=== PATIENT | female | born 2000 | race Hispanic/Latino ===

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

== ENCOUNTER 2022-10-23 02:13 | Emergency (ER) | payer OTHER, SELFPAY ==
[2022-10-23 02:18] VITALS: BP 100/66; PULSE 72; RESP 16; TEMP 36.8; O2SAT 98; BMI 19.2
--- NOTE | 2022-10-23 02:40 | ED_ITS ---
HPI - Abdominal Pain General Chief Complaint: Abdominal Pain Stated Complaint: abd pain right side Time Seen by Provider: 10/23/22 02:34 Source: patient Mode of arrival: Ambulatory Limitations: no limitations History of Present Illness HPI narrative: This is a 22-year-old female with history of appendicitis treated with antibiotics and prior ovarian cysts as well as anxiety with complaint of right lower quadrant pain that started about 8pm on 10/22/2022. Patient states no fevers or chills. She is had nausea this evening and vomited once. She denies diarrhea or constipation, no black or bloody stools. She denies dysuria, urgency or frequency. She states she is currently on her menses. She denies any new vaginal discharge. Patient states pain is in the right lower abdomen, she states it feels similar when she had her appendicitis actually a little bit better than it was earlier this evening. Patient also notes she is had an ovarian cyst in the past on the left. Patient states she was treated with antibiotics for her appendicitis she states she was hospitalized twice for this. She never had an appendectomy. She denies any prior surgeries. She is on Lexapro as her only daily medication. No known drug allergies. She denies tobacco, rare alcohol, no illicit. Primary care is through the [facility]. Related Data Previous Rx's Medication Instructions Recorded cephalexin 500 mg capsule 500 mg PO BID #10 caps 12/29/21 ondansetron 4 mg disintegrating 4 mg PO Q6H PRN nausea and 12/29/21 tablet vomiting #10 tabs sulfamethoxazole 800 1 tab PO Q12H #20 tabs 10/23/22 mg-trimethoprim 160 mg tablet (Bactrim DS) Allergies Allergy/AdvReac Type Severity Reaction Status Date / Time No Known Drug Allergies Allergy Verified 12/29/21 12:39 Review of Systems Review of Systems ROS Unobtainable: All systems reviewed & are unremarkable except as noted in HPI and below Patient History Social History Smoking Status: Never smoker Smoking Status: Never smoker alcohol intake frequency: holidays/special occasions only Substance Use Type: does not use Exam Narrative Exam Narrative: GENERAL: Alert and oriented x three, female in luki-ix-kijafmul distress. HEENT: Head normocephalic, atraumatic, EOMI, pupils reactive, face symmetric, moist mucous membranes NECK: Supple, full range of motion CARDIOVASCULAR: Regular rate and rhythm without murmurs, rubs or gallops. RESPIRATORY: Breath sounds equal bilaterally, no wheezes rales or rhonchi. ABDOMEN: Soft, positive for right lower quadrant tenderness. Normoactive bowel sounds all 4 quadrants. No guarding or rebound, rigidity, no mass, nondisten ded. : Positive for right CVA tenderness, no left CVA EXTREMITIES: Normal range of motion, no clubbing or edema. Neurovascularly intact NEUROLOGICAL: Cranial nerves II through XII grossly intact. Moving all extremities SKIN: Warm, dry, no petechiae, no rashes or lesions. Initial Vital Signs Initial Vital Signs: Vital Signs Temperature 98.3 F 10/23/22 02:18 Pulse Rate 72 10/23/22 02:18 Respiratory Rate 16 10/23/22 02:18 Blood Pressure 100/66 10/23/22 02:18 Pulse Oximetry 98 10/23/22 02:18 Oxygen Delivery Method 10/23/22 02:18 Course Orders Ordered: ED Orders 10/23/22 02:24 Complete Blood Count AUTO DIFF Stat Comprehensive Metabolic Panel Stat Lipase Stat EKG-12 Lead Stat 10/23/22 02:51 US pelvic complete Stat 10/23/22 02:57 Urine Culture Stat Urine Microscopic Stat Discontinued Medications Ketorolac Tromethamine (Ketorolac 30 Mg/Ml Vial) 15 mg IV NOW ONE Stop: 10/23/22 02:52 Last Admin: 10/23/22 03:08 Dose: 15 mg Documented By: ANDRESSA Ondansetron HCl (Ondansetron 4 Mg Odt) 4 mg PO NOW PRN PRN Reason: Nausea And Vomiting Ondansetron HCl (Ondansetron 4 Mg/2 Ml Inj) 4 mg IV NOW PRN PRN Reason: Nausea And Vomiting Last Admin: 10/23/22 03:11 Dose: 4 mg Documented By: ANDRESSA Ondansetron HCl (Ondansetron 4 Mg/2 Ml Inj) 4 mg IV NOW ONE Stop: 10/23/22 02:52 Last Admin: 10/23/22 03:12 Dose: Not Given Documented By: ANDRESSA Trimethoprim/Sulfamethoxazole (Trimeth/Sulfa 160/800 Prepack) 1 bottle MISC SEEINSTR ONE Stop: 10/23/22 04:07 Trimethoprim/Sulfamethoxazole (Trimeth/Sulfa 160/800 (Ds) Tablet) 1 tab PO NOW ONE Stop: 10/23/22 04:27 Last Admin: 10/23/22 04:33 Dose: 1 tab Vital Signs Vital signs: Vital Signs - 8 hr 10/23/22 02:18 10/23/22 04:41 Temperature 98.3 F 97.8 F Pulse Rate 72 59 L Respiratory Rate 16 14 Blood Pressure 100/66 100/63 Pulse Oximetry 98 99 Oxygen Delivery Method Room Air Room Air MDM - Abdominal Pain Lab Data Result diagrams: 10/23/22 02:24 10/23/22 02:24 Labs: Lab Results 10/23/22 10/23/22 10/23/22 Range/Units 02:24 02:24 02:57 WBC 7.3 (4.5-11.0) X10^3/uL RBC 4.73 (4.0-5.2) X10^6/uL Hgb 13.5 (12.0-16.0) g/dL Hct 41.2 (36-46) % MCV 87.0 (80-100) fL MCH 28.6 (26-34) PG MCHC 32.9 (30-36) % RDW 13.8 (11.6-14.8) % Plt Count 263 (150-400) X10^3/uL Neut % (Auto) 59.6 (50-75) % Lymph % (Auto) 31.6 (25-40) % Lane % (Auto) 7.5 (3-14) % Eos % (Auto) 0.9 L (2-4) % Baso % (Auto) 0.4 (0-2) % Neut # (Auto) 4400 (6011-6038) /uL Lymph # (Auto) 2300 (1131-2462) /uL Lane # (Auto) 500 (0-900) /uL Eos # (Auto) 100 (0-450) /uL Baso # (Auto) 0 (0-100) /uL Sodium 139 (137-145) mmol/L Potassium 3.5 (3.4-5.1) mmol/L Chloride 103 (98-107) mmol/L Carbon Dioxide 25 (22-32) mmol/L BUN 5 L (7-17) mg/dL Creatinine 0.62 (0.52-1.04) mg/dL Estimated GFR > 60 (>60) mL/min BUN/Creatinine Ratio 8.1 (6-22) Glucose 92 (70-100) mg/dL Calcium 8.8 (8.4-10.2) mg/dL Total Bilirubin 0.3 (0.2-1.3) mg/dL AST 21 (14-36) IU/L ALT 17 (<35) IU/L Alkaline Phosphatase 63 (38-126) U/L Total Protein 7.8 (6.3-8.2) g/dL Albumin 4.5 (3.5-5.0) g/dL Globulin 3.3 (1.7-4.1) g/dL Albumin/Globulin Ratio 1.4 (1.0-2.8) Lipase 51 (23-300) U/L Urine RBC 5-10/hpf H (0-5/HPF) Urine WBC 30-100/hpf H (0-5/HPF) Ur Squamous Epith Cells 1-5 /hpf (0-5/HPF) Urine Bacteria Moderate (10-30) H (None) Ur Culture Indicated? Specimen cultured Point of care testing: Point of Care Testing Test Results Negative Urine Dip Bedside Urine Glucose Negative Bedside Urine Bilirubin - Negative Bedside Urine Ketone - Negative Urine Specific [place] 1.015 Bedside Urine Occult Blood ++ Bedside Urine pH 7.0 Bedside Urine Protein ++ 100 Bedside Urine Urobilinogen - Negative Bedside Urine Nitrite - Negative Bedside Urine Leukocytes + 70 Esterase Imaging Data US - abdomen: Radiologist's Impression: US tech prelim result: right ovarian cyst, no appendix visualized. Normal sonographic appearance of uterus, endometrium and bilateral adnexa. Patient has a dominant follicle that is 2.3 cm maximum size. Appendix is not visualized, there is no fluid within the cul-de-sac, no adnexal masses are identified. Blood flow was demonstrated to bilateral ovaries with normal spectral and Doppler imaging of both ovaries. [facility] Narrative Medical decision making narrative: This is a 22-year-old female who presents with complaint of abdominal pain particularly in the right side, patient has history of ovarian cysts, appendic itis treated with antibiotics and has not had an appendectomy. Patient states it feels somewhat similar to when she had appendicitis. She is tender on exam in the right lower quadrant. Patient denies any urinary symptoms, point of care urine does show leukocyte esterase, blood is present but patient states she is on her menses. test is negative. Patient's CBC, CMP, lipase are negative. Patient's urine microscopy does show RBCs, WBCs and moderate bacteria with 1-5 squamous epithelials. Discussed with patient ultrasound versus CT imaging, discussed risks versus benefits may not be able to visualize the appendix but if we are able to do so gives us definitive answer with less r adiation exposure. Patient elects to go down this pathway ultrasound does not visualize the appendix but does otherwise showed normal uterus, endometrium and adnexa with a maximum rate ovarian follicle 2.3 cm. Patient does not have any free fluid urine does show some signs of infection. Patient blood is consistent with her current menses. Discussed with patient we have not ruled out appendicitis and a recommend CT of abdomen pelvis as she is had 2 prior episodes and she states she is actually had 3 prior episodes. Patient elects for watchful waiting and not to have CT abdomen pelvis this evening. We discussed return precautions that if she is not having improvement with antibiotics for possible UTI/pyelonephritis she does need to return for CT imaging in the next 12-24 hours. Patient and I discussed at length my concerns that she may still have an appendicitis and that we have not ruled this out. Patient expresses her understanding, states she will return for recheck if not improving. We did discuss that antibiotics cover for possible urine infection, not appendicitis. Discharge Plan Departure Patient Disposition: Home Clinical Impression: Abdominal pain, right lower quadrant Instructions: Acute Abdominal Pain Activity Restrictions/Additional Instructions: Your urine does show signs of infection today and you do have a small right ovarian cyst on ultrasound but your appendix was not visualized. I do recommend that you have a CT scan to rule out appendicitis as you had prior episodes in the past and appendicitis has not been ruled out today. Please return if your symptoms are not improving over the next 12-24 hours for repeat evaluation and CT scan. Prescription for urine infection was sent to [facility] in [place]. Please return for fevers greater than 100.4 F, worsening abdominal, back or flank pain, persistent vomiting, black or bloody stools or other new or concerning changes. Prescriptions: New sulfamethoxazole-trimethoprim [Bactrim DS] 800-160 mg tablet 1 tab PO Q12H Qty: 20 0RF No Action cephalexin 500 mg capsule 500 mg PO BID Qty: 10 0RF ondansetron 4 mg tablet,disintegrating 4 mg PO Q6H PRN (Reason: nausea and vomiting) Qty: 10 0RF Stand Alone Forms: Patient Portal/API
[2022-10-23 02:42] LABS: Add Manual Diff / Slide Review NO; Basophils Absolute Auto 0 /uL (0-100); Basophils Percent Auto 0.4 % (0-2); Eosinophils Absolute Auto 100 /uL (0-450); Eosinophils Percent Auto 0.9 % (2-4); Hematocrit 41.2 % (36-46); Hemoglobin 13.5 g/dL (12.0-16.0); Lymphocytes Absolute Auto 2300 /uL (1100-4500); Lymphocytes Percent Auto 31.6 % (25-40); Mean Corpuscular HGB Conc 32.9 % (30-36); Mean Corpuscular Hemoglobin 28.6 PG (26-34); Monocytes Absolute Auto 500 /uL (0-900); Monocytes Percent Auto 7.5 % (3-14); Neutrophils Absolute Auto 4400 /uL (1500-7000); Neutrophils Percent Auto 59.6 % (50-75); Platelet Count 263 X10^3/uL (150-400); Red Blood Cell Count 4.73 X10^6/uL (4.0-5.2); Red Cell Distribution Width 13.8 % (11.6-14.8); White Blood Cell Count 7.3 X10^3/uL (4.5-11.0)
[2022-10-23 02:50] LABS: Alanine Aminotransferase 17 IU/L (<35); Albumin 4.5 g/dL (3.5-5.0); Albumin Globulin Ratio 1.4 (1.0-2.8); Alkaline Phosphatase 63 U/L (38-126); Aspartate Aminotransferase 21 IU/L (14-36); BUN Creatinine Ratio 8.1 (6-22); Bilirubin Total 0.3 mg/dL (0.2-1.3); Blood Urea Nitrogen 5 mg/dL (7-17); Calcium 8.8 mg/dL (8.4-10.2); Carbon Dioxide 25 mmol/L (22-32); Chloride 103 mmol/L (98-107); Estimated Glomerular Filt Rate > 60 mL/min (>60); Globulin 3.3 g/dL (1.7-4.1); Glucose 92 mg/dL (70-100); HEMOLYSIS < 15 (0-50); Lipase 51 U/L (23-300); Potassium 3.5 mmol/L (3.4-5.1); Sodium 139 mmol/L (137-145); Total Protein 7.8 g/dL (6.3-8.2)
--- NOTE | 2022-10-23 02:51 | DI.US.S_ITS ---
PROCEDURE: US PELVIC COMPLETE INDICATIONS: RLQ, appy vs ovarian cyst TECHNIQUE: Real-time scanning was performed of the pelvic organs, with image documentation. Additional endovaginal scanning was necessary due to incomplete visualization of the adnexal and endometrial structures by transabdominal scanning. COMPARISON: None. FINDINGS: Uterus: Uterus is retroverted and normal in size at 6.7 x 4.2 x 5.6 cm. The myometrium is homogeneous. The endometrium measures 3.2 mm combined thickness. Ovaries: The right ovary measures 2.8 x 3.3 x 2.3 cm, with a calculated ovarian volume of 11.2 cc. The left ovary measures 2.1 x 2.6 x 1.7 cm, with a calculated ovarian volume of 5.0 cc. The ovaries have a normal sonographic appearance. A 2.0 x 2.1 x 2.2 cm simple cyst is seen in the right ovary. Less than 12 follicles can be seen in each ovary. No adnexal masses are seen. Other: No pathologic free abdominal or pelvic fluid. Appendix is not visualized. t IMPRESSION: 1. No sonographic signs of ovarian torsion. 2. Simple right ovarian 2.2 cm cyst. 3. Appendix not visualized. There is no significant discrepancy when compared to the overnight preliminary report. We strive to produce accurate, complete, and clear reports of imaging services. To assist us in improving patient care, this report was composed using standard report templates and voice recognition software. Therefore, it may contain abnormal punctuation, insertions and/or omissions. Occasional wrong-word or sound-alike substitutions may occur. Though we review the report and make efforts to correct it, we do recommend that the report be read carefully in proper context to recognize any text inaccuracies. Approved by: Fan Farmer M.D. on 10/23/2022 at 7:53
[2022-10-23] MEDS: KETOROLAC 30 MG/ML VIAL 15 MG IV (03:08)
[2022-10-23 03:10] LABS: Bacteria Urine Moderate (10-30); RBC Urine 5-10/HPF (0-5/HPF); Squamous Epithelial Cell Urine 1-5 /HPF (0-5/HPF); WBC Urine 30-100/HPF (0-5/HPF)
[2022-10-23 03:11] LABS: Culture Indicated Urine Specimen Cultured
[2022-10-23] MEDS: ONDANSETRON 4 MG/2 ML INJ IV (03:11)
[2022-10-23] MEDS: TRIMETH/SULFA 160/800 (DS) TABLET 1 TAB PO (04:33)
[2022-10-23 04:41] VITALS: BP 100/63; PULSE 59; RESP 14; TEMP 36.6; O2SAT 99
== END 2022-10-23 04:42 | disposition home or self-care (01) ==
PROVIDERS: Emergency Provider Emergency Medicine
DX: R10.31 Right lower quadrant pain (principal); R11.2 Nausea with vomiting, unspecified
CPT/HCPCS: 36415; 76830; 76856; 80053; 81003; 81015; 81025; 83690; 85025; 87077; 87086; 87186; 93005; 93976; 96374; 96375; 99284; J1885; J2405

== ENCOUNTER 2022-12-27 19:26 | Emergency (ER) | payer OTHER, SELFPAY ==
[2022-12-27 19:46] VITALS: BP 99/55; PULSE 62; RESP 16; TEMP 36.9; O2SAT 98; BMI 19.8
--- NOTE | 2022-12-27 20:12 | PC.NURSE ---
see triage note, pt states she put in a new tampon and then realized she didn't pull the other one out so she took out the new one but couldn't find the old one
[2022-12-27 20:24] LABS: Bacteria Urine Occasional (0-1); Mucus Urine 1+ (Negative); RBC Urine 5-10/HPF (0-5/HPF); Squamous Epithelial Cell Urine 1-5 /HPF (0-5/HPF); WBC Urine 1-5/HPF (0-5/HPF)
--- NOTE | 2022-12-27 22:39 | DI.US.S_ITS ---
PROCEDURE: US PELVIC COMPLETE INDICATIONS: RLQ Pain TECHNIQUE: Real-time scanning was performed of the pelvic organs, with image documentation. Additional endovaginal scanning was necessary due to incomplete visualization of the adnexal and endometrial structures by transabdominal scanning. COMPARISON: [facility], US, US PELVIC COMPLETE, 10/23/2022, 3:38. FINDINGS: Uterus: Uterus is retroverted and measures 6.3 x 3.3 x 4.7 cm. The endometrium measures up to 0.6 cm in thickness. Ovaries: The right ovary measures 1.5 x 1.9 x 1.9 cm, with a calculated ovarian volume of 2.8 cc. The left ovary measures 2.8 x 2.7 x 2.4 cm, with a calculated ovarian volume of 9.8 cc. The ovaries have a normal sonographic appearance. Less than 12 follicles can be seen in each ovary. No adnexal masses. There is an anechoic simple cyst in the left ovary measuring up to 1.7 cm likely representing a follicular cyst. There is patent arterial flow demonstrated within the ovaries. Other: No pathologic free abdominal or pelvic fluid. Appendix was not discretely visualized sonographically. IMPRESSION: 1. Appendix not visualized sonographically. 2. No adnexal masses. 3. No evidence of ovarian torsion. We strive to produce accurate, complete, and clear reports of imaging services. To assist us in improving patient care, this report was composed using standard report templates and voice recognition software. Therefore, it may contain abnormal punctuation, insertions and/or omissions. Occasional wrong-word or sound-alike substitutions may occur. Though we review the report and make efforts to correct it, we do recommend that the report be read carefully in proper context to recognize any text inaccuracies. Dictated by: Gutierrez Doran M.D. on 12/28/2022 at 0:10 Approved by: Gutierrez Doran M.D. on 12/28/2022 at 0:12
--- NOTE | 2022-12-27 22:46 | PC.NURSE ---
after exam per Dr Coulter, pt stated she also had a miscarriage a couple of months ago and had a d/c pt now also c/o lower abd pain more to the right, states she has had trouble with her appendix before but has not had it removed
[2022-12-27 22:58] LABS: Add Manual Diff / Slide Review NO; Basophils Absolute Auto 0 /uL (0-100); Basophils Percent Auto 0.4 % (0-2); Eosinophils Absolute Auto 100 /uL (0-450); Eosinophils Percent Auto 1.4 % (2-4); Hematocrit 35.6 % (36-46); Hemoglobin 11.9 g/dL (12.0-16.0); Lymphocytes Absolute Auto 3000 /uL (1100-4500); Lymphocytes Percent Auto 49.2 % (25-40); Mean Corpuscular HGB Conc 33.5 % (30-36); Mean Corpuscular Hemoglobin 28.6 PG (26-34); Mean Corpuscular Volume 85.5 fL (80-100); Monocytes Absolute Auto 500 /uL (0-900); Monocytes Percent Auto 8.1 % (3-14); Neutrophils Absolute Auto 2500 /uL (1500-7000); Neutrophils Percent Auto 40.9 % (50-75); Platelet Count 252 X10^3/uL (150-400); Red Blood Cell Count 4.16 X10^6/uL (4.0-5.2); Red Cell Distribution Width 13.8 % (11.6-14.8); White Blood Cell Count 6.1 X10^3/uL (4.5-11.0)
[2022-12-27 23:02] LABS: Alanine Aminotransferase 20 IU/L (<35); Albumin 3.9 g/dL (3.5-5.0); Albumin Globulin Ratio 1.4 (1.0-2.8); Alkaline Phosphatase 51 U/L (38-126); Aspartate Aminotransferase 28 IU/L (14-36); BUN Creatinine Ratio 20.6 (6-22); Bilirubin Total 0.3 mg/dL (0.2-1.3); Blood Urea Nitrogen 14 mg/dL (7-17); Calcium 8.8 mg/dL (8.4-10.2); Carbon Dioxide 23 mmol/L (22-32); Chloride 107 mmol/L (98-107); Estimated Glomerular Filt Rate > 60 mL/min (>60); Globulin 2.8 g/dL (1.7-4.1); Glucose 78 mg/dL (70-100); HEMOLYSIS < 15 (0-50); Potassium 3.6 mmol/L (3.4-5.1); Sodium 137 mmol/L (137-145); Total Protein 6.7 g/dL (6.3-8.2)
--- NOTE | 2022-12-28 00:30 | ED.FEMALEGU ---
HPI - Female Genitourinary General Chief complaint: Urogenital-Female Stated complaint: abd pain x2 days Time Seen by Provider: 12/27/22 19:33 Source: patient Mode of arrival: Ambulatory History of Present Illness HPI Narrative: 22-year-old female nonsmoker with noncontributory chronic medical history presents for evaluation of pelvic discomfort. She states that she is concerned that she may have left a tampon in place. She is in the middle of her normal menstrual cycle and states that she had placed a tampon by forgotten to take the existing 1 out and when she removed 1 she is convinced 1 was left behind. She denies any discharge other than mild vaginal bleeding. She has some lower abdominal discomfort. She is not dizzy nor weak or lightheaded. She has no fever or chills and denies nausea or vomiting. She denies dysuria, frequency or urgency Related Data Previous Rx's Medication Instructions Recorded cephalexin 500 mg capsule 500 mg PO BID #10 caps 12/29/21 ondansetron 4 mg disintegrating 4 mg PO Q6H PRN nausea and 12/29/21 tablet vomiting #10 tabs sulfamethoxazole 800 1 tab PO Q12H #20 tabs 10/23/22 mg-trimethoprim 160 mg tablet (Bactrim DS) Allergies Allergy/AdvReac Type Severity Reaction Status Date / Time No Known Drug Allergies Allergy Verified 12/29/21 12:39 Review of Systems Review of Systems Narrative: GENERAL: Denies chills, fatigue, malaise, fever, sweats. HEENT: Denies sinus pain, ear pain, sore throat, difficulty swallowing, dizziness. RESPIRATORY: Denies dyspnea, cough, wheezing, hemoptysis, sputum. CARDIOVASCULAR: Denies chest pain, palpitations, orthopnea, edema, GASTROINTESTINAL: Denies nausea, vomiting, abdominal pain, diarrhea, constipation, melena. : See HPI MUSCULOSKELETAL: denies weakness, joint pain, or bony pain SKIN: Denies rash, skin lesions, or other NEUROLOGIC: Denies weakness, headache, numbness, change in speech, confusion, seizures, incoordination. PSYCHIATRIC: No concerning psychosocial issues. 12 point review of systems is negative except for those stated above Patient History alcohol intake frequency: holidays/special occasions only Substance Use Type: does not use Exam Narrative Exam Narrative: GENERAL: [22] year old patient appears stated age. Well-developed patient, in mild distress. HEAD: Atraumatic. Normocephalic. EYES: Pupils equal round and reactive. Extraocular motions intact. No scleral icterus. No injection or drainage. ENT: Nose without bleeding, purulent drainage. Throat without erythema, tonsillar hypertrophy or exudate. Airway patent. NECK: Trachea midline. Non tender CARDIOVASCULAR: Regular rate and rhythm without murmurs, gallops, or rubs. RESPIRATORY: Clear to auscultation. Breath sounds equal bilaterally. No wheezes, rales, or rhonchi. GASTROINTESTINAL: Abdomen soft, mild suprapubic tenderness, nondistended. PELVIC: Minimal bleeding, no tampon or foreign body, no mass or lesion EXTREMITIES: No edema or joint tenderness. BACK: Nontender without deformity or crepitance. No flank tenderness. NEURO: AOx3. SKIN: No rash or erythema of visible areas Initial Vital Signs Initial Vital Signs: Vital Signs Temperature 98.4 F 12/27/22 19:46 Pulse Rate 62 12/27/22 19:46 Respiratory Rate 16 12/27/22 19:46 Blood Pressure 99/55 L 12/27/22 19:46 Pulse Oximetry 98 12/27/22 19:46 Oxygen Delivery Method Room Air 12/27/22 19:46 Course Orders Ordered: ED Orders 12/27/22 20:00 Urine Culture Stat Urine Microscopic Stat 12/27/22 22:30 Complete Blood Count AUTO DIFF Stat Comprehensive Metabolic Panel Stat 12/27/22 22:39 US pelvic complete Stat Vital Signs Vital signs: Vital Signs - 8 hr 12/27/22 19:46 Temperature 98.4 F Pulse Rate 62 Respiratory Rate 16 Blood Pressure 99/55 L Pulse Oximetry 98 Oxygen Delivery Method Room Air MDM - Female Genitourinary Lab Data 12/27/22 22:30 12/27/22 22:30 Labs: Lab Results 12/27/22 12/27/22 12/27/22 Range/Units 20:00 22:30 22:30 WBC 6.1 (4.5-11.0) X10^3/uL RBC 4.16 (4.0-5.2) X10^6/uL Hgb 11.9 L (12.0-16.0) g/dL Hct 35.6 L (36-46) % MCV 85.5 (80-100) fL MCH 28.6 (26-34) PG MCHC 33.5 (30-36) % RDW 13.8 (11.6-14.8) % Plt Count 252 (150-400) X10^3/uL Neut % (Auto) 40.9 L (50-75) % Lymph % (Auto) 49.2 H (25-40) % [place] % (Auto) 8.1 (3-14) % Eos % (Auto) 1.4 L (2-4) % Baso % (Auto) 0.4 (0-2) % Neut # (Auto) 2500 (2593-9953) /uL Lymph # (Auto) 3000 (7932-5120) /uL [place] # (Auto) 500 (0-900) /uL Eos # (Auto) 100 (0-450) /uL Baso # (Auto) 0 (0-100) /uL Sodium 137 (137-145) mmol/L Potassium 3.6 (3.4-5.1) mmol/L Chloride 107 (98-107) mmol/L Carbon Dioxide 23 (22-32) mmol/L BUN 14 (7-17) mg/dL Creatinine 0.68 (0.52-1.04) mg/dL Estimated GFR > 60 (>60) mL/min BUN/Creatinine Ratio 20.6 (6-22) Glucose 78 (70-100) mg/dL Calcium 8.8 (8.4-10.2) mg/dL Total Bilirubin 0.3 (0.2-1.3) mg/dL AST 28 (14-36) IU/L ALT 20 (<35) IU/L Alkaline Phosphatase 51 (38-126) U/L Total Protein 6.7 (6.3-8.2) g/dL Albumin 3.9 (3.5-5.0) g/dL Globulin 2.8 (1.7-4.1) g/dL Albumin/Globulin Ratio 1.4 (1.0-2.8) Urine RBC 5-10/hpf H (0-5/HPF) Urine WBC 1-5/hpf (0-5/HPF) Ur Squamous Epith Cells 1-5 /hpf (0-5/HPF) Urine Bacteria Occasional (0-1) (None) Urine Mucus 1+ H (Negative) Point of Care Testing Test Results Negative Urine Dip Bedside Urine Glucose Negative Bedside Urine Bilirubin - Negative Bedside Urine Ketone - Negative Urine Specific [place] 1.025 Bedside Urine Occult Blood +++ Bedside Urine pH 6 Bedside Urine Protein - Negative Bedside Urine Urobilinogen - Negative Bedside Urine Nitrite - Negative Bedside Urine Leukocytes - Negative Esterase Imaging Data Pelvic US: Radiologist's Impression: Appendix not visualized, no adnexal mass, no evidence of ovarian torsion MDM Narrative Medical decision making narrative: [22] year old patient presents with concern of retained foreign body in vagina Multiple etiologies for patient's symptoms considered including, but not limited to: [Retained foreign body versus other] Prior Charts reviewed in our EMR Primary Historian: patient Labs reviewed and interpreted by myself: No evidence of , no leukocytosis or left shift, H&H is stable, electrolytes unremarkable. Imaging reviewed: Ultrasound without evidence of adnexal mass or ovarian torsion Patient's symptoms improved over duration of stay with above-stated therapies. Her pain is nearly gone. We discussed the findings of her labs, physical exam and ultrasound. We did talk about whether or not the discomfort in the right lower quadrant she had earlier might be an atypical presentation of appendicitis. We discussed the pros and cons of potentially pursuing with a CT scan and patient states that she would prefer not to get a CT scan at this time given her significant improved symptoms. Furthermore this is an appropriate choice as she has no fever, vomiting, anorexia or leukocytosis. Findings and discharge diagnosis discussed with patient/family followed by verbalization of understanding Return precautions discussed with patient/family whom verbalize understanding of diagnosis and plan Discharge Plan Departure Patient Disposition: Home Clinical Impression: Pelvic pain Instructions: DI for Pelvic Pain Activity Restrictions/Additional Instructions: *You have been diagnosed with [pelvic pain. As we discussed your history and physical exam are reassuring as are the urine test and blood work. There was no evidence of any retained foreign body on our exam and the ultrasound shows no significant abnormal findings. As we discussed this could be a very atypical presentation of appendicitis but is very unlikely given your symptoms and labs.] *What to do: *Please continue to take your regular medications as directed. *Please follow up with your primary care provider in 2-3 days, call for an appointment. Let them know you were seen in the Emergency Department and that we ask that you be seen in follow up. We will electronically transmit a record of today's note if your PCP is in our system *If you do not have a primary care provider please contact the [facility] Resource line at [phone]. They will ask some questions about your medical history and help get you set up with a doctor in the community. *Return to Emergency Department if you should have any new, worsening or concerning symptoms, such as [fever greater than 101 F, shaking chills, worsening pain, persistent vomiting or other bothersome symptoms] Prescriptions: No Action cephalexin 500 mg capsule 500 mg PO BID Qty: 10 0RF ondansetron 4 mg tablet,disintegrating 4 mg PO Q6H PRN (Reason: nausea and vomiting) Qty: 10 0RF sulfamethoxazole-trimethoprim [Bactrim DS] 800-160 mg tablet 1 tab PO Q12H Qty: 20 0RF Stand Alone Forms: Patient Portal/API
[2022-12-28 00:45] VITALS: BP 116/58; PULSE 66; RESP 17; O2SAT 97
== END 2022-12-28 01:09 | disposition home or self-care (01) ==
PROVIDERS: Emergency Provider Emergency Medicine
DX: R10.2 Pelvic and perineal pain (principal)
CPT/HCPCS: 36415; 76830; 76856; 80053; 81003; 81015; 81025; 85025; 87086; 93975; 99283; 99284

== ENCOUNTER 2025-08-02 13:09 | Observation (INO) | payer OTHER, SELFPAY ==
--- NOTE | 2025-08-02 13:37 | DI.US.S_ITS ---
PROCEDURE: US OB LIMITED INDICATIONS: BLEEDING. HISTORY OF MISCARRIAGE. OUTSIDE/PRIOR DATING DATA: Last menstrual period (LMP): 03/16/2025 LMP-based estimated date of delivery (ESTUARDO): 12/21/2025 First dating scan (date and location): 06/28/[address] [facility] Estimated date of delivery (ESTUARDO) from first dating scan: 12/16/2025 The calculations are made using the clinical ESTUARDO of 12/21/2025 TECHNIQUE: Real-time scanning was performed of the fetus, with image documentation and biometric measurements. Biophysical profile was also obtained. Endovaginal scanning: Not performed. COMPARISON: [facility], US, US OB GROWTH, 06/28/2025, 9:55. FINDINGS: General: A single living intrauterine gestation is present. Presentation: Vertex Placenta: Placental position is fundal, without previa. Amniotic fluid index: 22.8 cm, normal range is 5-24 cm. Single deepest vertical pocket is 6.8 cm. heart rate: 145 beats per minute. Maternal cervical canal: 3.6 cm long. Normal lower limit is 2.5 cm. biometrics: Biparietal diameter: 4.8 cm, 20 weeks 4 days Head circumference: 17.7 cm, 20 weeks 1 day Abdominal circumference: 16.0 cm, 21 weeks 1 day Femur length: 3.2 cm, 20 weeks 1 day Clinically estimated gestational age: 19 weeks 6 days Composite gestational age from present scan: 20 weeks 4 days Estimated weight and percentile: 365 g, 85th percentile IMPRESSION: 1. Single live intrauterine . 2. Estimated weight is at the 85th percentile for gestational age. 3. Amniotic fluid index is 22.8 cm. 4. No acute placental abnormality. Approved by: Fan Farmer M.D. on 08/02/2025 at 14:46
[2025-08-02 14:03] LABS: Add Manual Diff / Slide Review NO; Hematocrit 32.1 % (36-46); Hemoglobin 11.2 g/dL (12.0-16.0); Lymphocytes Absolute Auto 1700 /uL (1100-4500); Mean Corpuscular HGB Conc 34.8 % (30-36); Mean Corpuscular Hemoglobin 30.5 PG (26-34); Mean Corpuscular Volume 87.6 fL (80-100); Platelet Count 308 X10^3/uL (150-400)
[2025-08-02 14:43] LABS: Appearance Urine UA CLEAR; Bilirubin Urine UA NEGATIVE (NEGATIVE); Color Urine UA YELLOW; Glucose Urine UA NEGATIVE (Negative); Ketones Urine UA NEGATIVE (NEGATIVE); Leukocyte Esterase Urine UA NEGATIVE (NEGATIVE); Nitrite Urine UA NEGATIVE (Negative); Occult Blood Urine UA NEGATIVE (Negative); Protein Urine UA NEGATIVE (Negative); Specific Gravity Urine UA <=1.005 (1.000-1.035); Urobilinogen Urine UA 0.2 E.U./dL (0.2); pH Urine UA 6.0 (4.5-8.0)
[2025-08-02 14:44] LABS: Culture Indicated Urine Cult Not Indicated
--- NOTE | 2025-08-02 15:18 | PM.OBTRLD ---
Visit Information Visit Information Date of evaluation: 08/02/25 On-call OB Provider: Bry Gallagher Reason for Evaluation: Yes other Comments/Additional reasons for admission: Kimberly is a marlo [age]-year-old 20+ 4 weeks gestational age who has been receiving care at [facility] to this point. She states that she has had an uneventful and is scheduled for her 20 week anatomy scan on 08/11/2025. She began having light vaginal bleeding which is now a dark brown discharge with only rare cramping and presents for evaluation. Review of records from [facility] show normal labs to date. Patient is Rh negative. Ultrasound today shows: PROCEDURE: US OB LIMITED INDICATIONS: BLEEDING. HISTORY OF MISCARRIAGE. OUTSIDE/PRIOR DATING DATA: Last menstrual period (LMP): 03/16/2025 LMP-based estimated date of delivery (ESTUARDO): 12/21/2025 First dating scan (date and location): 06/28/2025 at [facility] Estimated date of delivery (ESTUARDO) from first dating scan: 12/16/2025 The calculations are made using the clinical ESTUARDO of 12/21/2025 TECHNIQUE: Real-time scanning was performed of the fetus, with image documentation and biometric measurements. Biophysical profile was also obtained. Endovaginal scanning: Not performed. COMPARISON: [facility], US, US OB GROWTH, 06/28/2025, 9:55. FINDINGS: General: A single living intrauterine gestation is present. Presentation: Vertex Placenta: Placental position is fundal, without previa. Amniotic fluid index: 22.8 cm, normal range is 5-24 cm. Single deepest vertical pocket is 6.8 cm. heart rate: 145 beats per minute. Maternal cervical canal: 3.6 cm long. Normal lower limit is 2.5 cm. biometrics: Biparietal diameter: 4.8 cm, 20 weeks 4 days Head circumference: 17.7 cm, 20 weeks 1 day Abdominal circumference: 16.0 cm, 21 weeks 1 day Femur length: 3.2 cm, 20 weeks 1 day Clinically estimated gestational age: 19 weeks 6 days Composite gestational age from present scan: 20 weeks 4 days Estimated weight and percentile: 365 g, 85th percentile IMPRESSION: 1. Single live intrauterine . 2. Estimated weight is at the 85th percentile for gestational age. 3. Amniotic fluid index is 22.8 cm. 4. No acute placental abnormality. She denies cramping and has not had intercourse in the last 24 hours. She has no UTI symptoms and urinalysis is unremarkable. Exam [facility] Head: normal to inspection, normocephalic and atraumatic Eyes General: appearance normal, both eyes and all related structures Resp Effort & Inspection: normal respiratory effort and able to speak in complete sentences GI Inspection: normal to inspection Palpation: soft and no hepatosplenomegaly Uterus Location (Fundal Height): 20 Other: Fundus soft and nontender Objective Labs 08/02/25 13:48 Labs: Laboratory Results - last 24 hr 08/02/25 08/02/25 13:48 14:15 WBC 8.1 RBC 3.67 L Hgb 11.2 L Hct 32.1 L MCV 87.6 MCH 30.5 MCHC 34.8 RDW 14.3 Plt Count 308 Neut % (Auto) 72.2 Lymph % (Auto) 21.1 L [place] % (Auto) 5.6 Eos % (Auto) 0.8 L Baso % (Auto) 0.3 Neut # (Auto) 5800 Lymph # (Auto) 1700 [place] # (Auto) 500 Eos # (Auto) 100 Baso # (Auto) 0 Urine Color Yellow Urine Appearance Clear Urine pH 6.0 Ur Specific [place] <=1.005 Urine Protein Negative Urine Glucose (UA) Negative Urine Ketones Negative Urine Occult Blood Negative Urine Nitrate Negative Urine Bilirubin Negative Urine Urobilinogen 0.2 Ur Leukocyte Esterase Negative Urine RBC None seen Urine WBC None seen Ur Squamous Epith Cells None seen Urine Bacteria None seen Ur Culture Indicated? Cult not indicated Vol Urine Centrifuged 10ml (spun) Evaluation Evaluation Baseline heart rate: 150 Variability: Moderate (6-25) monitor accelerations: Present Monitor Decelerations: Absent Category of Tracing: Reactive Diagnosis, Plan/Disposition Final Diagnosis (1) : Status: Acute Problem details: Currently 20+ 4 weeks gestational age (2) Antepartum bleeding, second trimester: Status: Acute Plan/Disposition Plan: Home to bed rest and limited activities. Close observation for recurrent episodes of spotting/bleeding. Anatomy scan scheduled for 08/11/2025. Patient expresses desire to transfer care at [facility] and message sent to our scheduling personnel to initiate intake process. OB Disposition: home
== END 2025-08-02 15:12 | disposition home or self-care (01) ==
PROVIDERS: Admitting Provider Obstetrics & Gynecology; Referring Provider Obstetrics & Gynecology; Visit Provider Obstetrics & Gynecology
DX: O46.92 Antepartum hemorrhage, unspecified, second trimester (principal); Z3A.20 20 weeks gestation of pregnancy
CPT/HCPCS: 36415; 59025; 59050; 76815; 81001; 85025; 99221; G0378; G0379